=== PATIENT | female | born 1990 | race Two or more races ===

== ENCOUNTER 2021-01-26 15:33 | Emergency (ER) | payer MEDICAID ==
[~2021-01-26] VITALS: Ht 160 cm; Wt 85.9 kg
[2021-01-26] MEDS ORDERED: KETOROLAC TROMETHAMINE 30 MG/ML VIAL IM ONE (16:15)
[2021-01-26] MEDS ORDERED: LIDOCAINE 5% TRANSDERMAL PATCH TD ONE (16:15)
[2021-01-26] MEDS ORDERED: ACETAMINOPHEN 500 MG TABLET PO ONE (16:15)
[2021-01-26 16:17] VITALS: BP 121/71
== END 2021-01-26 18:40 | disposition left against medical advice (07) ==
LOC: EMS 15:36
DX: R06.02 Shortness of breath (principal); Z53.21 Procedure and treatment not carried out due to patient leaving prior to being seen by health care provider
CPT/HCPCS: 71045; 72072; 81025; J1885; 96372; 99283; 99284